=== PATIENT | female | born 1955 | race Caucasian/White ===

== ENCOUNTER 2020-07-24 13:22 | Emergency (ER) | payer MEDICARE, SELFPAY ==
--- NOTE | ~2020-07-24 | US_ITS ---
EXAMINATION: US VENOUS WITH DOPPLER LOWER EXTREMITY, LEFT CLINICAL INFORMATION: Leg swelling. Evaluate for deep vein thrombosis. COMPARISON: None TECHNIQUE: Ultrasound of the deep veins is performed from the hip to the calf with compression sonography and color and pulse Doppler assessment. Spectral analysis with color-flow imaging is performed. FINDINGS: There is normal venous compression and respiratory variation and augmented flow. The visualized common femoral vein, superficial femoral vein, profunda femoral vein, popliteal vein, and the trifurcation region shows no evidence of deep venous thrombosis. There is no significant popliteal fossa cyst. If the patient's symptoms persist, followup ultrasound in 5 days 7 days might be of value to exclude proximal propagation from a non-visualized calf vein. US/US venous duplex LE IMPRESSION: No DVT demonstrated in the left lower extremity.
--- NOTE | ~2020-07-24 | XR_ITS ---
EXAMINATION: XR TIBIA AND FIBULA, LEFT CLINICAL INFORMATION: Cellulitis. Assess for underlying osteomyelitis COMPARISON: None TECHNIQUE: AP and lateral views of the left tibia and fibula were obtained. FINDINGS: Diffuse soft tissue swelling is seen more so along the distal lower extremity. Underlying bony structures however are unremarkable with no acute bony destructive lesion or periosteal reaction. No fracture or dislocation. Mild degenerative changes in the visualized knee and ankle. Vascular calcification seen. XR/XR tibia fibula LT 2V IMPRESSION: Soft tissue swelling but no acute underlying bony abnormality.
[2020-07-24 14:42] VITALS: BP 133/71; PULSE 74; RESP 18; TEMP 36.8; O2SAT 97; BMI 56.7
[2020-07-24 16:58] LABS: Basophils Percent Auto 0.4 % (0-2); Eosinophils Absolute Auto 0.1 X10*3/uL (0.0-0.4); Eosinophils Percent Auto 1.2 % (0-4); Hematocrit 36.9 % (37-47); Hemoglobin 12.5 g/dl (12.0-16.0); Imm Gran Abs Auto 0.03 X10*3/uL (0.00-0.03); Imm Gran Pct Auto 0.5 % (0.0-0.4); Lymphocytes Absolute Auto 1.3 X10*3/uL (1.2-4.9); Lymphocytes Percent Auto 23.5 % (20-40); MANUAL DIFF FLAG NO; Mean Corpuscular HGB Conc 33.9 g/dl (31.0-35.0); Mean Corpuscular Volume 88.5 fL (80-98); Mean Platelet Volume 10.5 fL (9.4-12.3); Monocytes Absolute Auto 0.3 X10*3/uL (0.1-1.2); Monocytes Percent Auto 5.8 % (2-11); Neutrophils Absolute Auto 3.9 X10*3/uL (2.0-8.3); Neutrophils Percent Auto 68.6 % (45-73); Platelet Count 110 X10*3/uL (160-400); Red Blood Count 4.17 X10*6/uL (4.20-5.50); Red Cell Distribution Width 13.7 % (11.0-16.0); White Blood Count 5.7 X10*3/uL (4.8-10.8)
[2020-07-24 17:05] LABS: INTERNATIONAL NORM RATIO 1.1 (0.9-1.1); Prothrombin Time 13.2 SEC (10.8-13.0)
[2020-07-24 17:08] LABS: Partial Thromboplastin Time 37.4 SEC (24.1-38.0)
[2020-07-24 17:12] VITALS: BP 127/76; PULSE 73; RESP 16; TEMP 36.7; O2SAT 99
[2020-07-24 17:20] LABS: Lactic Acid 0.8 mmol/L (0.5-2.0)
[2020-07-24 17:24] LABS: Alanine Aminotransferase 34 U/L (0-31); Albumin Level 3.9 g/dL (3.5-5.0); Alkaline Phosphatase 180 U/L (39-117); Anion Gap 11 (12-20); Aspartate Amino Transferase 42 U/L (5-31); Bilirubin Direct 0.2 mg/dL (0.0-0.5); Bilirubin Total 0.5 mg/dL (0.0-1.0); Blood Urea Nitrogen 25 mg/dL (9-16); Calcium 9.2 mg/dL (8.4-10.2); Carbon Dioxide 27 mmol/L (22-29); Chloride 107 mmol/L (96-108); Creatinine Clr Calc Pharmacy 67.2; Estimated Glomerular Filt Rate 51; Glucose Random 89 mg/dL (60-115); Potassium 4.4 mmol/L (3.3-5.1); Sodium 141 mmol/L (135-145); Total Protein 7.3 g/dL (6.5-8.0)
--- NOTE | 2020-07-24 18:01 | ED.GENADULT ---
HPI - General Adult General Chief complaint: Skin/Abscess/Foreign Body Stated complaint: DVT Time Seen by Provider: 07/24/20 16:15 Source: patient Mode of arrival: ambulatory Limitations: no limitations History of Present Illness HPI narrative: Patient presents to ED for area on redness on amador of left leg with swelling due to falling 2 weeks ago and now area is read and warm. Patient states no chest pain or shortness of breath Related Data Previous Rx's Medication Instructions Recorded cephalexin 500 mg PO QID #27 cap 07/24/20 doxycycline hyclate 100 mg PO BID #13 cap 07/24/20 Allergies Allergy/AdvReac Type Severity Reaction Status Date / Time Sulfa Allergy Unknown Anaphylaxis Uncoded 07/24/20 14:42 Review of Systems Constitutional: Constitutional: Reports as per HPI and Reports no additional constitutional complaints Eyes: Eyes: Reports as per HPI and Reports no additional eye complaints ENT: Reports system reviewed and no additional complaints, except as documented and Reports as per HPI Cardiovascular: Cardiovascular: Reports as per HPI and Reports no additional cardiovascular complaints Respiratory: Respiratory: Reports as per HPI and Reports no additional respiratory complaints Gastrointestinal: Gastrointestinal: Reports as per HPI and Reports no additional gastrointestinal complaints Genitourinary: Genitourinary: Reports no additional female genitourinary complaints and Reports as per HPI Musculoskeletal: Musculoskeletal: Reports no additional musculoskeletal complaints and Reports as per HPI Neurologic: Reports system reviewed and no additional complaints, except as documented and Reports as per HPI Psychiatric: Psychiatric: Reports no additional psychiatric complaints and Reports as per HPI [facility] Past Medical History Medical History (Updated 07/24/20 @ 21:14 by NASIM Doty) CHF (congestive heart failure) Diabetes Social History Social History Alcohol intake: never Patient Tobacco Use Status: Never used Tobacco Use of substances other than those prescribed or required for medical reasons: No Advance Directives: No Advance Directives Information Provided: Yes Physical Exam Vital Signs: Vital Signs: Last Vital Signs Temp 98.0 F 07/24/20 21:16 Pulse 71 07/24/20 21:16 Resp 18 07/24/20 21:16 BP 120/57 L 07/24/20 21:16 Pulse Ox 96 07/24/20 21:16 Body Mass Index 56.7 Const: General: cooperative, healthy appearing, comfortable, no acute distress, well developed, alert, awake and Physically active Orientation/consciousness: oriented to person and patient oriented x3 HENMT: Head: Yes normal to inspection, Yes No palpable skull fracture present, Yes normocephalic, Yes atraumatic and No abrasion Eyes: General: appearance normal, both eyes and all related structures Skin: Other: Area of erythema on left leg which is on the amador positive for warmth and tenderness. Bedside ultrasound shows more cobblestone cellulitic changes. No indication for incision or drainage. Neuro: General: oriented to person, patient oriented x3, gait normal and CN's II-XI intact bilaterally Cranial nerves: Yes CN's II-XII intact bilaterally Extrem: Other: Left: Area of erythema on amador positive for warmth and swelling. Negative for fluctuance or swelling of rest of the leg. Negative for any calf tenderness. Negative for any red streaks. Vascular/nerves/motor exam is intact. Skin is not tight. Right lower extremity negative for swelling or redness. Vascular/motor/neuro exam intact Psych: Appearance: grossly normal, well kempt and not disheveled Course Course Course Narrative: Patient will have labs and x-ray and ultrasound. Reevaluation(s) Reevaluation #1: Ultrasound negative for DVT. X-ray negative for osteomyelitis or fracture. Negative for elevated white blood cell count. No indication for admission. Will give p.o. antibiotics in the ER and then discharged. Negative for any chest pain or shortness of breath. Not suspecting PE. Not suspecting compartment syndrome. Medical Decision Making [facility] Narrative Medical decision making narrative: Cellulitis Lab Data Result diagrams: 07/24/20 16:23 07/24/20 16:23 Labs: Lab Results 07/24/20 07/24/20 07/24/20 Range/Units 16:23 16:23 16:23 WBC 5.7 (4.8-10.8) X10*3/uL RBC 4.17 L (4.20-5.50) X10*6/uL Hgb 12.5 (12.0-16.0) g/dl Hct 36.9 L (37-47) % MCV 88.5 (80-98) fL MCH 30.0 (27.0-33.0) pg MCHC 33.9 (31.0-35.0) g/dl RDW 13.7 (11.0-16.0) % Plt Count 110 L (160-400) X10*3/uL MPV 10.5 (9.4-12.3) fL Immature Gran % (Auto) 0.5 H (0.0-0.4) % Neut % (Auto) 68.6 (45-73) % Lymph % (Auto) 23.5 (20-40) % [place] % (Auto) 5.8 (2-11) % Eos % (Auto) 1.2 (0-4) % Baso % (Auto) 0.4 (0-2) % Lymph # (Auto) 1.3 (1.2-4.9) X10*3/uL [place] # (Auto) 0.3 (0.1-1.2) X10*3/uL Eos # (Auto) 0.1 (0.0-0.4) X10*3/uL Baso # (Auto) 0.0 (0.0-0.2) X10*3/uL Abs Immat Gran (auto) 0.03 (0.00-0.03) X10*3/uL Absolute Neuts (auto) 3.9 (2.0-8.3) X10*3/uL Absolute Nucleated RBC 0.000 (0.0-0.012) X10*3/uL Nucleated RBC % (auto) 0.0 (0.0-0.2) /100WBC PT 13.2 H (10.8-13.0) SEC INR 1.1 (0.9-1.1) APTT 37.4 (24.1-38.0) SEC Sodium 141 (135-145) mmol/L Potassium 4.4 (3.3-5.1) mmol/L Chloride 107 (96-108) mmol/L Carbon Dioxide 27 (22-29) mmol/L Anion Gap 11 L (12-20) BUN 25 H (9-16) mg/dL Creatinine 1.08 (0.5-1.4) mg/dL Estim Creat Clear Calc 67.2 Estimated GFR 51 Random Glucose 89 (60-115) mg/dL Lactic Acid (0.5-2.0) mmol/L Calcium 9.2 (8.4-10.2) mg/dL Total Bilirubin 0.5 (0.0-1.0) mg/dL Direct Bilirubin 0.2 (0.0-0.5) mg/dL AST 42 H (5-31) U/L ALT 34 H (0-31) U/L Alkaline Phosphatase 180 H (39-117) U/L Total Protein 7.3 (6.5-8.0) g/dL Albumin 3.9 (3.5-5.0) g/dL 07/24/20 Range/Units 16:23 WBC (4.8-10.8) X10*3/uL RBC (4.20-5.50) X10*6/uL Hgb (12.0-16.0) g/dl Hct (37-47) % MCV (80-98) fL MCH (27.0-33.0) pg MCHC (31.0-35.0) g/dl RDW (11.0-16.0) % Plt Count (160-400) X10*3/uL MPV (9.4-12.3) fL Immature Gran % (Auto) (0.0-0.4) % Neut % (Auto) (45-73) % Lymph % (Auto) (20-40) % [place] % (Auto) (2-11) % Eos % (Auto) (0-4) % Baso % (Auto) (0-2) % Lymph # (Auto) (1.2-4.9) X10*3/uL [place] # (Auto) (0.1-1.2) X10*3/uL Eos # (Auto) (0.0-0.4) X10*3/uL Baso # (Auto) (0.0-0.2) X10*3/uL Abs Immat Gran (auto) (0.00-0.03) X10*3/uL Absolute Neuts (auto) (2.0-8.3) X10*3/uL Absolute Nucleated RBC (0.0-0.012) X10*3/uL Nucleated RBC % (auto) (0.0-0.2) /100WBC PT (10.8-13.0) SEC INR (0.9-1.1) APTT (24.1-38.0) SEC Sodium (135-145) mmol/L Potassium (3.3-5.1) mmol/L Chloride (96-108) mmol/L Carbon Dioxide (22-29) mmol/L Anion Gap (12-20) BUN (9-16) mg/dL Creatinine (0.5-1.4) mg/dL Estim Creat Clear Calc Estimated GFR Random Glucose (60-115) mg/dL Lactic Acid 0.8 (0.5-2.0) mmol/L Calcium (8.4-10.2) mg/dL Total Bilirubin (0.0-1.0) mg/dL Direct Bilirubin (0.0-0.5) mg/dL AST (5-31) U/L ALT (0-31) U/L Alkaline Phosphatase (39-117) U/L Total Protein (6.5-8.0) g/dL Albumin (3.5-5.0) g/dL Discharge Plan Discharge Clinical Impression: Cellulitis Patient Disposition: Home, Self-Care Instructions: Cellulitis (ED) Additional Instructions: Return to the ED for worsening redness, increased size, fluctuance, tenderness, development of red streaks, chest pain, shortness of breath, or any other concerning symptoms. Recommend warm compress on area of erythema 4 times a day for 15 minutes Prescriptions: New cephalexin 500 mg capsule 500 mg PO QID Qty: 27 RF: 0 doxycycline hyclate 100 mg capsule 100 mg PO BID Qty: 13 RF: 0 Referrals: Mat Dawson MD [Primary Care Provider] - 2 days (Left leg cellulitis. Ultrasound negative for DVT. X-ray negative for osteomyelitis) Interventions: ED Discharge Assessment Last Done: 07/24/20 21:24 Discharge Date/Time: 07/24/20 21:26 Print Language: Romanian
[2020-07-24 18:48] VITALS: BP 127/72; PULSE 66; RESP 18; O2SAT 97
[2020-07-24] MEDS: Ketorolac Tromethamine 30 MG/ML VIAL IVPUSH (19:36)
--- NOTE | 2020-07-24 20:04 | PC.NURSE ---
PT RETURNS FROM [facility]. PT REQUESTING FOOD AND EATING A SANDWICH. PT AWAITING FOR RESULTS. WILL CONTINUE TO [facility] PT. PHONE RETURNED TO PT.
[2020-07-24 21:01] VITALS: BP 167/107; PULSE 81; RESP 21; TEMP 36.6; O2SAT 100
[2020-07-24 21:12] VITALS: PULSE 81; RESP 16
[2020-07-24 21:16] VITALS: BP 120/57; PULSE 71; RESP 18; TEMP 36.7; O2SAT 96
[2020-07-24] MEDS: cephALEXin 500 MG CAPSULE PO (21:21)
== END 2020-07-24 21:26 | disposition home or self-care (01) ==
PROVIDERS: Physician Assistant; Emergency Provider Emergency Medicine; PCP Internal Medicine
DX: L03.116 Cellulitis of left lower limb (principal); R22.42 Localized swelling, mass and lump, left lower limb; E11.9 Type 2 diabetes mellitus without complications; I50.9 Heart failure, unspecified
CPT/HCPCS: 36415; 73590; 80048; 80076; 83605; 85025; 85610; 85730; 87040; 93971; 96374; 99284; J1885

== ENCOUNTER 2021-02-06 14:07 | Outpatient (REF) | payer MEDICARE, SELFPAY ==
[2021-02-06 14:55] LABS: Influenza A PCR NEGATIVE (Negative); Influenza B PCR NEGATIVE (Negative); Resp Syncy Virus RNA Qual PCR NEGATIVE (Negative); SARS COV2 PCR INHOUSE NEGATIVE (Negative)
== END 2021-02-06 14:08 | disposition home or self-care (01) ==
LOC: HO.LNP 14:07
PROVIDERS: Visit Provider Physician Assistant Medical
DX: Z20.822 Contact with and (suspected) exposure to COVID-19 (principal); J98.8 Other specified respiratory disorders; B97.89 Other viral agents as the cause of diseases classified elsewhere; J06.9 Acute upper respiratory infection, unspecified
CPT/HCPCS: 0241U; 87071